=== PATIENT | female | born 1980 | race Caucasian/White ===

== ENCOUNTER 2018-01-18 09:00 | Outpatient (CLI) | payer BC ==
--- NOTE | 2018-01-18 10:27 | RAD ---
RIGHT ELBOW FOUR VIEWS: HISTORY: Right elbow pain. FINDINGS: Radial capitellar alignment is maintained. No acute fracture, dislocation, or fluid distention of th e joint capsule. IMPRESSION: No acute osseous abnormalities are demonstrated. POS: [facility]
--- NOTE | 2018-01-18 10:28 | RAD ---
LEFT ELBOW FOUR VIEWS: HISTORY: Left elbow pain. FINDINGS: Radial capitellar alignment is maintained. No acute fracture, dislocation, or fluid distention of th e joint capsule. IMPRESSION: No acute osseous abnormalities demonstrate. POS: [facility]
== END 2018-01-18 09:01 | disposition home or self-care (01) ==
LOC: SCSRAD 09:00
PROVIDERS: ATTEND Family Medicine
DX: G56.00 Carpal tunnel syndrome, unspecified upper limb (principal)

== ENCOUNTER 2018-08-17 14:14 | Outpatient (CLI) | payer BC ==
--- NOTE | 2018-08-17 16:24 | RAD ---
LEFT KNEE FOUR VIEWS: HISTORY: Left knee pain for two weeks. COMPARISON: None. FINDINGS: Four views of the left knee show no evidence of acute fracture or dislocation. Mild patellofemoral d egenerative changes are seen. No knee effusion is seen. IMPRESSION: Mild left knee osteoarthritis without acute osseous abnormality. POS: [facility]
== END 2018-08-17 14:15 | disposition home or self-care (01) ==
LOC: SCSRAD 14:14
PROVIDERS: ATTEND Family Medicine
DX: M23.92 Unspecified internal derangement of left knee (principal); M17.12 Unilateral primary osteoarthritis, left knee

== ENCOUNTER 2018-08-29 08:18 | Outpatient (CLI) | payer BC ==
--- NOTE | 2018-08-29 09:31 | MRI ---
MR OF THE LEFT KNEE WITHOUT CONTRAST INDICATION: Internal derangement of the left knee and one month ago TECHNIQUE: Axial and coronal PD fat sat, sagittal T2 fat sat, sagittal PD turbo spin echo and T1 dominic nal images were obtained of the left knee. COMPARISON: Radiograph of the left knee dated August 17, 2018 FINDINGS: Joint effusion: There is a mild-sized joint effusion Semimembranosus-medial gastrocnemius popliteal cyst: Tiny Ligaments: The ACL, PCL, MCL and LCLC are intact. There is fluid distention is seen involving the tib ial collateral ligament-semimembranosus bursa. Extensor mechanism: Intact. Menisci: There is a horizontally oriented tear involving the body and posterior junction of the media l meniscus the lateral meniscus appears intact. Articular cartilage: There is severe chondrosis affecting the patellofemoral compartment with areas o f full-thickness articular cartilage thinning involving the lower median patellar ridge and lateral patellar facet. There are areas of full-thickness thinning involving the lateral femoral trochlea. Th ere is a 4 mm near full-thickness articular cartilage defect involving the central lateral femoral condyle. There is diffuse chondral thinning involving the medial femoral tibial joint compartment. Th ere are small marginal osteophytes affecting all major compartments of the left knee. Osseous structures: Normal marrow signal. Popliteus and IT band: Normal. IMPRESSION: 1. Mild osteoarthrosis of the left knee. 2. Medial meniscal tear 3. Tibial collateral ligament-semimembranosus bursitis
== END 2018-08-29 08:19 | disposition home or self-care (01) ==
LOC: SCSMRI 08:18
PROVIDERS: ATTEND Family Medicine
DX: M23.92 Unspecified internal derangement of left knee (principal); M17.12 Unilateral primary osteoarthritis, left knee; M76.42 Tibial collateral bursitis [Pellegrini-Stieda], left leg

== ENCOUNTER 2018-09-07 06:59 | Day surgery (SDC) | payer BC ==
[2018-09-01 12:00] VITALS: BMI 50.3
[2018-09-07] MEDS ORDERED: PROPOFOL 20 ML ONE (08:07)
[2018-09-07] MEDS ORDERED: Scopolamine 1.5 mg/72 hour Patch ONE (08:32)
[2018-09-07] MEDS ORDERED: ceFAZolin Sodium (SDC) 2 GM/100 ML BAG ONE (08:51)
[2018-09-07] MEDS ORDERED: Fentanyl 100 MCG/2 ML VIAL ONE ×2 (09:40→10:31)
--- NOTE | 2018-09-07 11:33 | OP ---
DATE OF PROCEDURE: 09/07/2018 PREOPERATIVE DIAGNOSIS: Medial meniscus tear, left knee. POSTOPERATIVE DIAGNOSIS: Medial meniscus tear, left knee. FINDINGS OF SURGERY: Posterior horn medial meniscus tear, full-thickness defect, medial femoral condyle. The lateral compartment was actually intact with just some mild degenerative changes and fraying of the lateral meniscus, this did not require meniscectomy. Patellofemoral joint was in good condition. DESCRIPTION OF PROCEDURE: Scope was placed in the lateral portal, probe was placed in the medial portal. Findings were as above. I debrided the medial meniscus using basket forceps and smoothed using 4.0 full radius resector. The ACL was intact. Lateral compartment was just gently shaved, but I did not have to perform meniscectomy. The knee was then drained after the portals were swept. Sterile dressings applied. Job ID: [id number]
[2018-09-07] MEDS ORDERED: Ondansetron PF 4 MG/2 ML Vial ONE (12:13)
== END 2018-09-07 12:20 | disposition home or self-care (01) ==
LOC: SDC 06:59
PROVIDERS: ATTEND Orthopaedic Surgery
PROC: 0SBD4ZZ Excision of Left Knee Joint, Percutaneous Endoscopic Approach (ICD-10-PCS; principal; 2018-09-07)
DX: S83.242A Other tear of medial meniscus, current injury, left knee, initial encounter (principal); M24.10 Other articular cartilage disorders, unspecified site; M17.12 Unilateral primary osteoarthritis, left knee; K21.9 Gastro-esophageal reflux disease without esophagitis; F32.9 Major depressive disorder, single episode, unspecified; E66.9 Obesity, unspecified; R51 Headache; G47.33 Obstructive sleep apnea (adult) (pediatric); Z79.899 Other long term (current) drug therapy; Z91.040 Latex allergy status
CPT/HCPCS: J0690; J2405; J2704; J3010

== ENCOUNTER 2019-03-06 13:31 | Outpatient (CLI) | payer BC | END 2019-03-06 13:32 | disposition home or self-care (01) | LOC: CTENTCT 13:31 | PROVIDERS: ATTEND Student in an Organized Health Care Education/Training Program | DX: J32.9 Chronic sinusitis, unspecified (principal) | CPT/HCPCS: 70486 ==

== ENCOUNTER 2019-07-30 09:21 | Emergency (ER) | payer BC ==
[2019-07-30] MEDS ORDERED: diphenhydrAMINE 25 MG CAP ONE ×2 (10:24→10:26)
== END 2019-07-30 12:17 | disposition home or self-care (01) ==
LOC: ERS 09:21
DX: T78.40XA Allergy, unspecified, initial encounter (principal); F41.9 Anxiety disorder, unspecified
CPT/HCPCS: 99283; Q0163

== ENCOUNTER 2019-12-24 06:30 | Outpatient (CLI) | payer BC ==
[2019-12-24 10:34] LABS: BHCG - Serum Negative (NEGATIVE); Pregs Control Background? CLEAR/WHITE (CLR/WHITE); Pregs Control Bar Appear? YES (CONTROL BAR)
[2019-12-24 11:01] LABS: #Eosinphils 0.1 10x3/uL (0.0-0.5); #Monocytes 0.6 10x3/uL (0.0-1.1); #Neutrophils 4.8 10x3/uL (1.5-8.4); %Basophils 0.4 % (0.0-2.0); %Lymphocytes 40.8 % (18.0-47.0); %Monocytes 5.9 % (0.0-10.0); %Neutrophils 50.9 % (40.0-75.0); Hemoglobin 12.6 g/dL (12.0-16.0); Mean Corpuscular HGB CONC 31.3 G/DL (32.0-36.0); Mean Corpuscular Hemoglobin 25.8 PG (27.0-33.0); Mean Corpuscular Volume 82.4 fl (80.0-100.0); Mean Platelet Volume 11.5 fl (7.4-10.4); Platelet Count 257 10x3/uL (130-400); RBC Distribution Width 13.7 % (11.5-14.5); Red Blood Cell (RBC) Count 4.88 10x6/uL (3.90-5.20); White Blood Cell (WBC) Count 9.4 10x3/uL (4.5-11.0)
[2019-12-24 11:07] LABS: Platelet Clumps SLIGHT; Platelet Morphology Comment Appears Adequate
[2019-12-24 11:08] LABS: RBC Morphology Normal
[2019-12-24 23:14] LABS: SARS-CoV-2 MS2 Positive; SARS-CoV-2 N Gene Negative; SARS-CoV-2 S Gene Negative; SARS-CoV-2 by NAA Not Detected (NotDetected); SARS-CoV-2 orf1ab Negative
== END 2019-12-24 06:31 | disposition home or self-care (01) ==
LOC: LABBT 06:30
PROVIDERS: ATTEND Orthopaedic Surgery
DX: Z01.812 Encounter for preprocedural laboratory examination (principal); G56.01 Carpal tunnel syndrome, right upper limb; G56.21 Lesion of ulnar nerve, right upper limb; Z20.828 Contact with and (suspected) exposure to other viral communicable diseases
CPT/HCPCS: 84703; 85025; 87635; U0003

== ENCOUNTER 2019-12-27 05:58 | Day surgery (SDC) | payer BC ==
[2019-12-26 12:03] VITALS: BMI 50.5
[2019-12-27] MEDS ORDERED: Fentanyl 100 MCG/2 ML VIAL ONE ×2 (06:03→06:46)
[2019-12-27] MEDS ORDERED: Midazolam HCl 2 mg/2 ml Vial ONE ×2 (06:03→06:46)
[2019-12-27] MEDS ORDERED: Lidocaine 1% w/Epinephrine 1:100K 20 ML VIAL ONE (06:39)
[2019-12-27] MEDS ORDERED: Ondansetron PF 4 MG/2 ML Vial ONE (10:25)
[2019-12-27] MEDS ORDERED: Dexamethasone 20 MG/5 ML VIAL ONE (10:25)
[2019-12-27] MEDS ORDERED: Bupivacaine HCl 0.5%/Epinephrine 1:200,000/PF 30 ml Vial ONE (10:25)
--- NOTE | 2019-12-27 12:58 | OP ---
DATE OF PROCEDURE: 12/27/2019 PREOPERATIVE DIAGNOSES: 1. Right carpal tunnel syndrome. 2. Right cubital tunnel syndrome. POSTOPERATIVE DIAGNOSES: 1. Right carpal tunnel syndrome. 2. Right cubital tunnel syndrome. PROCEDURES PERFORMED: 1. Right open carpal tunnel release. 2. Right cubital tunnel release. BEEF GRINDER: None. ANESTHESIOLOGIST: Evans Cantrell MD ANESTHESIA: The patient received interscalene and supraclavicular blocks, single shot. ESTIMATED BLOOD LOSS: Less than 20 mL. TOURNIQUET TIME: 30 minutes at 250 mmHg. ANTIBIOTICS: Ancef 2 g. IMPLANTS: None. COMPLICATIONS: None. HISTORY OF PRESENT ILLNESS: Ms. Palencia is a 39-year-old female. She is right-hand dominant. She works as a laboratory coordinator, has signs and symptoms of carpal tunnel and cubital tunnel. She had some medial epicondylitis symptoms. I discussed with her medial epicondylitis and perform a right cubital tunnel and carpal tunnel release. Hopefully, they would relieve her symptoms. She understood the risks and benefits of surgery including pain, scar, bleeding, infection, damage to vital structures, decreased range of motion and strength, continued pain despite surgical intervention, damage to nerves, loss of life or limb. The patient has severe nausea. Therefore, she had a block to help with her postop nausea. She understood the risks and benefits of procedure, and elected to proceed. DESCRIPTION OF PROCEDURE: Time-out was performed designating the patient's right upper extremity as the operative site based on site, consent, and marking. After time-out, the patient's right upper extremity was prepped and draped in a sterile fashion. Tourniquet was left up for about a total of 32 minutes. We made an incision over the patient's medial elbow just between her medial condyle and her olecranon down through skin sharply and blunt dissected down to find the fascia. We found the nerve, which I released all Merrill ligament and ensured it was released. The distal muscle fibers were spread with my scissors and the fascia superiorly was released. I released the intermuscular septum proximally with both digital palpation as well as some soft tissue release. I made sure the nerve was freely mobile. There was no sign of adhesions or tethering as well as no signs of compression. I washed. I took a little bit of the fascial attachments off. There was kind of scar tissue fascial attachments off the medial epicondyle, which I did cautery and blunt dissection. I looked at the medial condyle, which looked good throughout its course, so no obvious full-thickness tearing. I then washed. I closed with the 0 Vicryl deep and 3-0 nylon horizontal mattress sutures for the skin. I then moved the hand. Procedure #2: I made an incision proximal to Teague's cardinal line on the 4th ray down through skin. I blunt dissected down to the palmar fascia using the knife I placed my retractor to expose the transverse carpal ligament and the palmaris brevis. I made sure it was completely released protecting nerve with hemostats throughout its course. I ensured with scissors proximally it was released. I washed and closed with 4-0 nylon. The patient was placed in a soft tissue dressing. She will be discharged to home today. She will follow up me in clinic in about 10 to 12 days. She will wear a sling until she follows up and convert to wrist splint. Job ID: [id number]
== END 2019-12-27 09:10 | disposition home or self-care (01) ==
LOC: SDC 05:58
PROVIDERS: ATTEND Orthopaedic Surgery
PROC: 01N40ZZ Release Ulnar Nerve, Open Approach (ICD-10-PCS; principal; 2019-12-27)
PROC: 01N50ZZ Release Median Nerve, Open Approach (ICD-10-PCS; principal; 2019-12-27)
PROC: 3E0T3BZ Introduction of Anesthetic Agent into Peripheral Nerves and Plexi, Percutaneous Approach (ICD-10-PCS; principal; 2019-12-27)
DX: G56.21 Lesion of ulnar nerve, right upper limb (principal); G56.01 Carpal tunnel syndrome, right upper limb; M77.01 Medial epicondylitis, right elbow; G89.18 Other acute postprocedural pain; K21.9 Gastro-esophageal reflux disease without esophagitis; E66.9 Obesity, unspecified; F32.9 Major depressive disorder, single episode, unspecified; F90.0 Attention-deficit hyperactivity disorder, predominantly inattentive type; K58.9 Irritable bowel syndrome, unspecified; G47.33 Obstructive sleep apnea (adult) (pediatric); Z68.43 Body mass index [BMI] 50.0-59.9, adult; Z79.899 Other long term (current) drug therapy; Z88.7 Allergy status to serum and vaccine; Z91.040 Latex allergy status
CPT/HCPCS: J0690; J1100; J2250; J2405; J3010

== ENCOUNTER 2020-05-19 12:24 | Outpatient (CLI) | payer BC ==
[2020-05-20 02:10] LABS: SARS-CoV-2 PCR by NAA Not Detected (NotDetected)
== END 2020-05-19 12:25 | disposition home or self-care (01) ==
LOC: LABBT 12:24
PROVIDERS: ATTEND Internal Medicine Gastroenterology
DX: Z01.812 Encounter for preprocedural laboratory examination (principal); Z20.822 Contact with and (suspected) exposure to COVID-19
CPT/HCPCS: 36415; 83516; 83630; 85025; 87045; 87046; 87177; 87427; 87449; 87635; U0003; U0005

== ENCOUNTER 2020-05-22 05:57 | Day surgery (SDC) | payer BC ==
[2020-05-21 11:20] VITALS: BMI 50.5
[2020-05-22] MEDS ORDERED: PROPOFOL 200 MG/20 ML VIAL ONE (07:56)
[2020-05-22] MEDS ORDERED: Esmolol 100 MG/10 ML VIAL ONE (07:56)
== END 2020-05-22 08:57 | disposition home or self-care (01) ==
LOC: SDC 05:57
PROVIDERS: ATTEND Internal Medicine Gastroenterology
PROC: 0DBE8ZX Excision of Large Intestine, Via Natural or Artificial Opening Endoscopic, Diagnostic (ICD-10-PCS; principal; 2020-05-22)
DX: K52.9 Noninfective gastroenteritis and colitis, unspecified (principal); G47.30 Sleep apnea, unspecified; Z79.899 Other long term (current) drug therapy; Z88.7 Allergy status to serum and vaccine; Z91.041 Radiographic dye allergy status
CPT/HCPCS: 88305; J2704

== ENCOUNTER 2021-05-20 12:17 | Outpatient (CLI) | payer BC | END 2021-05-20 12:18 | disposition home or self-care (01) | LOC: SCSMRI 12:17 | PROVIDERS: ATTEND Orthopaedic Surgery | DX: M25.552 Pain in left hip (principal) ==

== ENCOUNTER 2021-08-03 13:35 | Outpatient (CLI) | payer BC | END 2021-08-03 13:36 | disposition home or self-care (01) | LOC: SCSMRI 13:35 | PROVIDERS: ATTEND Orthopaedic Surgery | DX: S46.012A Strain of muscle(s) and tendon(s) of the rotator cuff of left shoulder, initial encounter (principal) ==

== ENCOUNTER 2021-10-05 06:55 | Inpatient (IN) | payer BC ==
[2021-10-05] MEDS ORDERED: Vancomycin (BATCH) 1.5 GRAM/300 ML BAG ONE (07:23)
[2021-10-05] MEDS ORDERED: Sodium Chloride 0.9% 100 ML ONE ×2 (07:23→09:31)
[2021-10-05] MEDS ORDERED: Tranexamic Acid 1,000 MG/10 ML VIAL ONE (07:23)
[2021-10-05] MEDS ORDERED: VANCOMYCIN 2 GRAM/500 ML BAG 2 GM in Premix Bag 1 BAG IVPB SCH (08:00)
[2021-10-05] MEDS ORDERED: ceFAZolin 2 GM/Dextrose 50 ML 2 GM in Premix Bag 1 BAG IVPB SCH (08:00)
[2021-10-05] MEDS ORDERED: Midazolam HCl 2 mg/2 ml Vial ONE (08:39)
[2021-10-05] MEDS ORDERED: Fentanyl 100 MCG/2 ML VIAL ONE ×3 (08:39→14:43)
[2021-10-05] MEDS ORDERED: Scopolamine 1.5 mg/72 hour Patch ONE (09:08)
[2021-10-05] MEDS ORDERED: Bupivacaine PF 0.5% 30 ML VIAL ONE (09:16)
[2021-10-05] MEDS ORDERED: diphenhydrAMINE 25 MG CAP PO PRN (09:20)
[2021-10-05] MEDS ORDERED: HYDROcodone/Acetaminophen 10/325 mg Tablet PO PRN ×3 (09:20→09:45)
[2021-10-05] MEDS ORDERED: Acetaminophen 325 MG TAB PO PRN (09:20)
[2021-10-05] MEDS ORDERED: Fentanyl 100 MCG/2 ML VIAL SLOW IVP PRN ×2 (09:20)
[2021-10-05] MEDS ORDERED: Ondansetron PF 4 MG/2 ML Vial IVP PRN ×2 (09:20→09:45)
[2021-10-05] MEDS ORDERED: Promethazine HCl 25 MG/ML VIAL IM PRN ×2 (09:20→09:45)
[2021-10-05] MEDS ORDERED: Zolpidem Tartrate 5 MG TAB PO PRN ×2 (09:20→09:45)
[2021-10-05] MEDS ORDERED: CEFAZOLIN 2 GM VIAL ONE (09:31)
[2021-10-05] MEDS ORDERED: fentaNYL Citrate/PF 100 MCG/2 ML SYRINGE ONE ×2 (09:32→10:39)
[2021-10-05] MEDS ORDERED: Glycopyrrolate 0.2 MG/ML 5 ML SYRINGE ONE (09:43)
[2021-10-05] MEDS ORDERED: Ondansetron PF 4 MG/2 ML Vial ONE (09:43)
[2021-10-05] MEDS ORDERED: PROPOFOL 200 MG/20 ML VIAL ONE (09:43)
[2021-10-05] MEDS ORDERED: Ropivacaine 0.5% HCl/PF (150 MG/30 ML VIAL) ONE (09:43)
[2021-10-05] MEDS ORDERED: Dexamethasone 20 MG/5 ML VIAL ONE (09:43)
[2021-10-05] MEDS ORDERED: Ropivacaine 0.2% 550 ML 550 ML NERVE BLCK SCH (09:45)
[2021-10-05] MEDS ORDERED: traMADol HCl 50 MG TAB PO PRN ×2 (09:45)
[2021-10-05] MEDS ORDERED: Fentanyl 100 MCG/2 ML VIAL IV PRN (09:46)
[2021-10-05] MEDS ORDERED: CEFAZOLIN 2 GM in Sodium Chloride 0.9% 100 ML IVPB SCH (10:00)
[2021-10-05] MEDS ORDERED: PROPOFOL 20 ML ONE (12:55)
[2021-10-05] MEDS ORDERED: Ketorolac Tromethamine 30 MG/ML VIAL IVP SCH (14:00)
[2021-10-05] MEDS ORDERED: HYDROmorphone 0.5 MG/0.5 ML SYRINGE ONE ×2 (14:08→14:25)
[2021-10-05] MEDS: Sodium Chloride 0.9% 1,000 ML IV SCH ×2 (16:13→20:07)
[2021-10-05] MEDS: Ketorolac Tromethamine 30 MG/ML VIAL IVP SCH ×3 (16:13→23:48)
[2021-10-05 16:37] VITALS: BMI 55.3
[2021-10-05] MEDS: CEFAZOLIN 2 GM in Sodium Chloride 0.9% 100 ML IVPB SCH (17:54)
[2021-10-05] MEDS: Ferrous Gluconate 324 MG TAB PO SCH (20:07)
[2021-10-05] MEDS: Aspirin 81 mg Enteric Coated Tablet PO SCH (20:07)
[2021-10-05] MEDS: Senokot S 8.6-50 MG TAB PO SCH (20:07)
[2021-10-05] MEDS: traZODone HCl 50 MG TAB PO SCH (20:07)
[2021-10-05] MEDS: HYDROcodone/Acetaminophen 10/325 mg Tablet PO PRN (20:08)
[2021-10-05] MEDS: Venlafaxine HCl XR 150 MG CAP PO SCH (20:08)
[2021-10-06] MEDS: CEFAZOLIN 2 GM in Sodium Chloride 0.9% 100 ML IVPB SCH (01:56)
[2021-10-06] MEDS: Ketorolac Tromethamine 30 MG/ML VIAL IVP SCH ×4 (05:35→23:15)
[2021-10-06] MEDS: Sodium Chloride 0.9% 1,000 ML IV SCH ×3 (05:36→23:16)
[2021-10-06 07:20] LABS: Mean Corpuscular HGB CONC 33.8 g/dL (32.0-36.0); Mean Corpuscular Hemoglobin 28.1 pg (27.0-31.0); Mean Corpuscular Volume 83.2 fL (78.0-98.0); Platelet Count 224 thou/uL (130-400); RBC Distribution Width 13.1 % (11.5-14.5); Red Blood Cell (RBC) Count 3.92 mill/uL (4.20-5.40); White Blood Cell (WBC) Count 13.7 thou/uL (4.8-10.8)
[2021-10-06] MEDS: Senokot S 8.6-50 MG TAB PO SCH ×2 (08:36→20:00)
[2021-10-06] MEDS: Ferrous Gluconate 324 MG TAB PO SCH ×2 (08:36→20:00)
[2021-10-06] MEDS: Multivitamin W/ Minerals 1 TAB PO SCH (08:36)
[2021-10-06] MEDS: Aspirin 81 mg Enteric Coated Tablet PO SCH ×2 (08:37→20:00)
[2021-10-06] MEDS: Loratadine 10 MG TAB PO SCH (08:37)
[2021-10-06] MEDS ORDERED: Loratadine 10 MG TAB PO SCH (09:00)
[2021-10-06] MEDS: HYDROcodone/Acetaminophen 10/325 mg Tablet PO PRN ×3 (09:31→22:07)
[2021-10-06] MEDS: traZODone HCl 50 MG TAB PO SCH (20:00)
[2021-10-06] MEDS: Venlafaxine HCl XR 150 MG CAP PO SCH (20:06)
[2021-10-07] MEDS: HYDROcodone/Acetaminophen 10/325 mg Tablet PO PRN (05:30)
[2021-10-07] MEDS: Ketorolac Tromethamine 30 MG/ML VIAL IVP SCH (05:30)
[2021-10-07 05:55] LABS: Hemoglobin 10.2 g/dL (12.0-16.0); Mean Corpuscular HGB CONC 34.7 g/dL (32.0-36.0); Mean Corpuscular Hemoglobin 28.9 pg (27.0-31.0); Mean Corpuscular Volume 83.5 fL (78.0-98.0); Mean Platelet Volume 7.4 fL (7.4-10.4); Platelet Count 229 thou/uL (130-400); RBC Distribution Width 13.2 % (11.5-14.5); Red Blood Cell (RBC) Count 3.54 mill/uL (4.20-5.40); White Blood Cell (WBC) Count 13.3 thou/uL (4.8-10.8)
[2021-10-07 08:01] VITALS: BP 129/85; TEMP 98.4
[2021-10-07] MEDS: Sodium Chloride 0.9% 1,000 ML IV SCH (08:44)
[2021-10-07] MEDS: Loratadine 10 MG TAB PO SCH (08:49)
[2021-10-07] MEDS: Multivitamin W/ Minerals 1 TAB PO SCH (08:49)
[2021-10-07] MEDS: Aspirin 81 mg Enteric Coated Tablet PO SCH (08:49)
[2021-10-07] MEDS: Ferrous Gluconate 324 MG TAB PO SCH (08:50)
[2021-10-07] MEDS: Senokot S 8.6-50 MG TAB PO SCH (08:51)
== END 2021-10-07 10:45 | disposition home or self-care (01) | DRG 467 ==
LOC: SDC 06:55 → SURG A 15:41 → SDC 15:51 → SURG A 15:55 → OBSVTOIN 10-06 07:27
PROVIDERS: ADMIT Orthopaedic Surgery; ATTEND Orthopaedic Surgery
PROC: 0SPD0JZ Removal of Synthetic Substitute from Left Knee Joint, Open Approach (ICD-10-PCS; principal; 2021-10-06)
PROC: 0SRD0J9 Replacement of Left Knee Joint with Synthetic Substitute, Cemented, Open Approach (ICD-10-PCS; 2021-10-06)
DX: M12.562 Traumatic arthropathy, left knee (principal); Z68.43 Body mass index [BMI] 50.0-59.9, adult; Z20.822 Contact with and (suspected) exposure to COVID-19; E66.01 Morbid (severe) obesity due to excess calories; K21.9 Gastro-esophageal reflux disease without esophagitis; F32.A Depression, unspecified; F98.8 Other specified behavioral and emotional disorders with onset usually occurring in childhood and adolescence; K58.9 Irritable bowel syndrome, unspecified; G47.33 Obstructive sleep apnea (adult) (pediatric); Z79.899 Other long term (current) drug therapy; Z91.040 Latex allergy status
CPT/HCPCS: 36415; 76000; 85027; A4306; C1713; C1776; J0690; J1100; J1170; J1885; J2250; J2405; J2704; J2795; J3010; J3370; J3490; S0020

== ENCOUNTER 2022-07-21 18:00 | Outpatient (CLI) | payer BC | END 2022-07-21 18:01 | disposition home or self-care (01) | LOC: SLEEPLAB 18:00 | PROVIDERS: ATTEND Family Medicine | DX: G47.33 Obstructive sleep apnea (adult) (pediatric) (principal); E66.9 Obesity, unspecified; R06.83 Snoring; R53.83 Other fatigue | CPT/HCPCS: 95811 ==

== ENCOUNTER 2022-10-13 10:22 | Emergency (ER) | payer BC ==
[2022-10-13 11:58] LABS: #Basophils 0.1 thou/uL (0.0-0.2); #Eosinphils 0.1 thou/uL (0.0-0.7); #Monocytes 0.7 thou/uL (0.11-0.59); #Neutrophils 6.3 thou/uL (1.40-6.50); %Basophils 0.5 % (0.0-1.0); %Eosinophils 0.8 % (0.0-10.0); %Lymphocytes 32.2 % (21.0-51.0); %Monocytes 6.5 % (0.0-10.0); %Neutrophils 59.5 % (42.0-75.0); Hematocrit 38.9 % (36.0-47.0); Hemoglobin 12.4 g/dL (12.0-16.0); Mean Corpuscular HGB CONC 31.9 g/dL (32.0-36.0); Mean Corpuscular Hemoglobin 27.5 pg (27.0-31.0); Mean Corpuscular Volume 86.3 fl (78.0-98.0); Mean Platelet Volume 9.2 fL (7.4-10.4); Platelet Count 330 10x3/uL (130-400); RBC Distribution Width 15.1 % (11.5-14.5); Red Blood Cell (RBC) Count 4.51 mill/uL (4.20-5.40); White Blood Cell (WBC) Count 10.6 10x3/uL (4.8-10.8)
[2022-10-13] MEDS ORDERED: Iopamidol-370 76% 500 ML MDV (1 ML CHARGE) ONE (12:25)
[2022-10-13 12:30] LABS: ALT (SGPT) 34 U/L (8-55); AST (SGOT) 18 U/L (5-34); Albumin 3.6 g/dL (3.5-5.0); Alkaline Phosphatase 111 U/L (40-110); Anion Gap 12 mmol/L (10-20); BUN (Urea Nitrogen) 11 mg/dL (7.0-18.7); Bilirubin, Total 0.3 mg/dL (0.2-1.2); Calc. Creatinine Clearance 0 mL/min (70-130); Carbon Dioxide 23 mmol/L (22-29); Chloride 105 mmol/L (98-107); Estimated GFR 70; Globulin 2.9 g/dL (2.4-3.5); Glucose 79 mg/dL (70-105); Potassium 3.4 mmol/L (3.5-5.1); Protein, Total 6.5 g/dL (6.0-8.3); Sodium 137 mmol/L (136-145)
[2022-10-13] MEDS ORDERED: Acetaminophen 500 MG TAB ONE (12:36)
[2022-10-13] MEDS ORDERED: Ketorolac Tromethamine 30 MG/ML VIAL ONE (12:36)
[2022-10-13 12:50] LABS: Troponin I Less than 0.010 ng/mL (< 0.028)
== END 2022-10-13 14:51 | disposition home or self-care (01) ==
LOC: ERS 10:22
DX: S09.90XA Unspecified injury of head, initial encounter (principal); S73.102A Unspecified sprain of left hip, initial encounter; M54.50 Low back pain, unspecified; W18.30XA Fall on same level, unspecified, initial encounter
CPT/HCPCS: 36415; 70450; 71045; 71275; 72125; 72131; 80053; 83880; 84484; 85025; 85379; 93005; 96374; J1885; Q9967

== ENCOUNTER 2023-04-06 12:30 | Inpatient (IN) | payer BC ==
[2023-04-07 13:37] VITALS: BMI 57.4
[2023-04-11] MEDS ORDERED: EPINEPHrine 1 MG/ML VIAL ONE (06:46)
[2023-04-11] MEDS ORDERED: Bupivacaine 0.25% HCL 30 ML VIAL ONE (06:47)
[2023-04-11] MEDS ORDERED: Lidocaine 1% MPF 2 ML VIAL ONE (06:55)
[2023-04-11] MEDS ORDERED: Sodium Chloride 0.9% 100 ML ONE (06:55)
[2023-04-11] MEDS ORDERED: Scopolamine 1 mg/72 hour Patch ONE (06:55)
[2023-04-11] MEDS ORDERED: Enoxaparin 40 MG (0.4 mL) SYRINGE ONE (06:56)
[2023-04-11] MEDS ORDERED: Midazolam HCl 2 mg/2 ml Vial ONE (07:17)
[2023-04-11] MEDS ORDERED: HYDROmorphone 2 MG/ML VIAL ONE (07:17)
[2023-04-11] MEDS ORDERED: Ondansetron PF 4 MG/2 ML Vial ONE (07:17)
[2023-04-11] MEDS ORDERED: Esmolol 100 MG/10 ML VIAL ONE (07:17)
[2023-04-11] MEDS ORDERED: Dexamethasone 4 mg/ml Vial ONE (07:17)
[2023-04-11] MEDS ORDERED: cefOXitin 2 GM VIAL ONE (07:17)
[2023-04-11] MEDS ORDERED: Rocuronium Bromide 10 MG/ML (10ML VIAL) ONE (07:17)
[2023-04-11] MEDS ORDERED: PROPOFOL 20 ML ONE (07:17)
[2023-04-11] MEDS ORDERED: Lidocaine 1% PF 5 ML VIAL ONE (07:22)
[2023-04-11] MEDS ORDERED: PROPOFOL 40 ML ONE (08:02)
[2023-04-11] MEDS ORDERED: Ketorolac Tromethamine 30 MG (1 mL) VIAL ONE (08:50)
[2023-04-11] MEDS ORDERED: SUGAMMADEX SODIUM 200 MG/2 ML VIAL ONE (08:51)
[2023-04-11] MEDS ORDERED: Glucagon 1 MG/ML KIT IM PRN (09:08)
[2023-04-11] MEDS ORDERED: Ipratropium/Albuterol 3 ML NEB NEB PRN (09:08)
[2023-04-11] MEDS ORDERED: diphenhydrAMINE 50 MG/ML VIAL IVP PRN (09:08)
[2023-04-11] MEDS ORDERED: hydrALAZINE 20 MG/ML VIAL SLOW IVP PRN (09:08)
[2023-04-11] MEDS ORDERED: Dextrose 50% Abboject 50 ML SYRINGE SLOW IVP PRN (09:08)
[2023-04-11] MEDS ORDERED: Promethazine HCl 25 MG/ML VIAL IM PRN (09:08)
[2023-04-11] MEDS ORDERED: Dextrose 5% in Water 1,000 ML IV PRN (09:08)
[2023-04-11] MEDS: D5 1/2 NS w/20 mEq KCL 1,000 ML IV SCH (09:15)
[2023-04-11] MEDS ORDERED: fentaNYL 50 mcg/mL 1 mL Vial ONE ×2 (09:24→09:48)
[2023-04-11] MEDS ORDERED: HYDROmorphone 0.5 MG/0.5 ML SYRINGE ONE (10:03)
[2023-04-11] MEDS: Ondansetron PF 4 MG/2 ML Vial IVP PRN (13:16)
[2023-04-11] MEDS: Ketorolac Tromethamine 30 MG (1 mL) VIAL IVP SCH (13:16)
[2023-04-11] MEDS: Morphine 2 MG/ML VIAL SLOW IVP PRN (20:24)
[2023-04-11] MEDS: traZODone HCl 50 MG TAB PO SCH (20:32)
[2023-04-11] MEDS: Venlafaxine HCl XR 150 MG CAP PO SCH (20:33)
[2023-04-12 04:55] LABS: #Monocytes 0.9 thou/uL (0.11-0.59); #Neutrophils 11.2 thou/uL (1.40-6.50); %Basophils 0.1 % (0.0-1.0); %Lymphocytes 18.4 % (21.0-51.0); %Monocytes 6.2 % (0.0-10.0); %Neutrophils 74.9 % (42.0-75.0); Hematocrit 35.6 % (36.0-47.0); Hemoglobin 11.4 g/dL (12.0-16.0); Mean Corpuscular Hemoglobin 26.3 pg (27.0-31.0); Mean Platelet Volume 10.7 fL (7.4-10.4); Platelet Count 297 10x3/uL (130-400); RBC Distribution Width 16.1 % (11.5-14.5); Red Blood Cell (RBC) Count 4.34 mill/uL (4.20-5.40); White Blood Cell (WBC) Count 14.9 10x3/uL (4.8-10.8)
[2023-04-12 05:15] LABS: Anion Gap 15 mmol/L (10-20); BUN (Urea Nitrogen) 11 mg/dL (7.0-18.7); Calc. Creatinine Clearance 192 mL/min (70-130); Calcium 8.3 mg/dL (7.8-10.44); Carbon Dioxide 22 mmol/L (22-29); Chloride 105 mmol/L (98-107); Estimated GFR 88; Glucose 113 mg/dL (70-105); Potassium 3.8 mmol/L (3.5-5.1); Sodium 138 mmol/L (136-145)
[2023-04-12 08:11] VITALS: BP 116/71; TEMP 98.9
[2023-04-12] MEDS: Pantoprazole 40 MG VIAL IVP SCH (08:45)
[2023-04-12] MEDS: Enoxaparin 40 MG (0.4 mL) SYRINGE SC SCH (08:46)
[2023-04-12] MEDS: Hydrocodone-Acetamin 15 ML UDCUP PO PRN (08:46)
== END 2023-04-12 10:50 | disposition home or self-care (01) | DRG 621 ==
LOC: SURG A 04-11 06:11 → SURG B 04-11 10:51
PROVIDERS: ADMIT Surgery; ATTEND Surgery
PROC: 0DB64Z3 Excision of Stomach, Percutaneous Endoscopic Approach, Vertical (ICD-10-PCS; principal; 2023-04-11)
PROC: 8E0W4CZ Robotic Assisted Procedure of Trunk Region, Percutaneous Endoscopic Approach (ICD-10-PCS; 2023-04-11)
DX: E66.01 Morbid (severe) obesity due to excess calories (principal); K21.9 Gastro-esophageal reflux disease without esophagitis; Z79.899 Other long term (current) drug therapy; Z91.040 Latex allergy status; Z88.7 Allergy status to serum and vaccine; M06.9 Rheumatoid arthritis, unspecified; M19.90 Unspecified osteoarthritis, unspecified site; F41.9 Anxiety disorder, unspecified; G47.33 Obstructive sleep apnea (adult) (pediatric); E78.5 Hyperlipidemia, unspecified
CPT/HCPCS: 36415; 36416; 80048; 85025; 88307; 94760; C9113; J0171; J0665; J0694; J1100; J1170; J1650; J1885; J2250; J2272; J2405; J2704; J3010; J3480; J3490

== ENCOUNTER 2024-01-11 13:57 | Outpatient (CLI) | payer BC | END 2024-01-11 13:58 | disposition home or self-care (01) | LOC: SCSMRI 13:57 | PROVIDERS: ATTEND Orthopaedic Surgery | DX: M24.811 Other specific joint derangements of right shoulder, not elsewhere classified (principal); M75.111 Incomplete rotator cuff tear or rupture of right shoulder, not specified as traumatic; M19.011 Primary osteoarthritis, right shoulder; R93.7 Abnormal findings on diagnostic imaging of other parts of musculoskeletal system; Q74.8 Other specified congenital malformations of limb(s) ==